=== PATIENT | female | born 1980 ===

== ENCOUNTER 2017-07-06 12:08 | Inpatient (IN) | payer BC, OTHER ==
[2017-07-07] MEDS ORDERED: MAG HYDROX/AL HYDROX/SIMETH 30 ML UDCUP PO PRN (20:06)
[2017-07-07] MEDS ORDERED: MAGNESIUM HYDROXIDE 30 ML UDCUP PO PRN (20:06)
[2017-07-07] MEDS ORDERED: NICOTINE POLACRILEX 2 MG GUM B PRN (20:06)
[2017-07-07] MEDS ORDERED: MELATONIN 3 MG TAB PO PRN (20:20)
[2017-07-07] MEDS ORDERED: hydrOXYzine HCL 25 MG TAB PO PRN (20:21)
[2017-07-07] MEDS ORDERED: SUMAtriptan 50 MG TAB PO PRN (20:23)
[2017-07-07] MEDS: PRAZOSIN HCL 1 MG CAP PO SCH (21:44)
[2017-07-07] MEDS: PROPRANOLOL HCL 20 MG TAB PO SCH (21:45)
[2017-07-07] MEDS: LITHIUM CARBONATE 600 MG CAP PO SCH (21:45)
[2017-07-07] MEDS: FAMOTIDINE 20 MG TAB PO SCH (21:45)
[2017-07-07] MEDS: MIRTAZAPINE 15 MG TAB PO SCH (21:45)
[2017-07-07] MEDS: LORazepam 1 MG TAB PO PRN (21:45)
[2017-07-08] MEDS: FAMOTIDINE 20 MG TAB PO SCH ×2 (07:46→20:59)
[2017-07-08] MEDS: CYCLOBENZAPRINE 10 MG TAB PO PRN ×2 (07:46→20:58)
[2017-07-08] MEDS: ESCITALOPRAM OXALATE 10 MG TAB PO SCH (08:45)
[2017-07-08] MEDS: buPROPion 100 MG TAB PO SCH (08:48)
[2017-07-08] MEDS: PROPRANOLOL HCL 20 MG TAB PO SCH ×2 (08:48→20:59)
[2017-07-08] MEDS: LITHIUM CARBONATE 600 MG CAP PO SCH ×2 (10:07→21:09)
[2017-07-08] MEDS: MULTIVITAMINS 1 EACH TAB PO SCH (10:07)
[2017-07-08] MEDS ORDERED: FLU VACC QS 2017-18 (3YR+)/PF 0.5 ML SYR (FLUARIX QUAD) IM ONE (12:17)
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
[2017-07-08] MEDS: LORazepam 1 MG TAB PO PRN ×2 (15:58→20:59)
[2017-07-08] MEDS ORDERED: OXYMETAZOLINE 30 ML NASAL SPRAY EACHNARE PRN (16:24)
[2017-07-08] MEDS ORDERED: PSEUDOEPHEDRINE HCL 30 MG TAB PO PRN (16:24)
[2017-07-08] MEDS ORDERED: ALBUTEROL HFA ANES ONLY 200 PUFFS/8.5 GM MDI IH PRN (17:05)
[2017-07-08] MEDS ORDERED: ALBUTEROL 200 PUFFS/18 GM MDI IH PRN (17:09)
--- NOTE | 2017-07-08 19:08 | GCON ---
[f rep st] CONSULTATION INTERNAL MEDICINE CONSULTATION DATE OF CONSULTATION: 07/08/2017 REASON FOR CONSULTATION: Medical opinion regarding stability for inpatient psychiatric hospitalizati on. HISTORY OF PRESENT ILLNESS: The patient is a 36-year-old female with a longstanding history of major depressive disorder and suicidal ideation. She was recently hospitalized at [facility] for suicidal ideation, and has failed to improve so was referred to [facility] for ECT. From a medical standpoint, she has multiple complaints including a recent sinus congestion and a little bit of a sore throat. She has COPD due to being born as a preemie, an d does intermittently use inhalers, which she thinks she should start on Advair given this recent vir al upper respiratory tract infection. She has a pinched nerve in her neck that bothers her intermitt ently, typically well controlled on Flexeril and tramadol. She has GERD, which is well controlled on twice daily H2 bernard. PAST MEDICAL HISTORY: 1. Major depressive disorder with psychotic features. 2. Migraine headaches. 3. Celiac disease. 4. GERD. 5. COPD due to being born prematurely. MEDICATIONS: Please see computer record for full detailed list. ALLERGIES: Sulfa. SOCIAL HISTORY: Occasional alcohol. She smokes marijuana daily. She lives with her in [place]. REVIEW OF SYSTEMS: Complete review of systems obtained. Review of systems negative regarding consti tutional, HEENT, GI, pulmonary, cardiovascular, , hematology, skin, muscular, endocrine, psych, exc ept for positives and negatives as in HPI. FAMILY HISTORY: Reviewed and noncontributory to the presenting complaint. PHYSICAL EXAMINATION: GENERAL: Well-developed, well-nourished female, in no acute distress. VITAL SIGNS: Temperature 36.4, pulse 77, blood pressure 109/53, saturating 94% on room air. EYES: Normal conjunctivae. Pupils equal, round, react to light. ENT: Normal ears and nose. Hearing intact. N ormal teeth. Oropharynx moist. NECK: Trachea midline. No thyromegaly. CHEST: Normal respiratory effort. LUNGS: Clear to auscultation bilaterally. CARDIOVASCULAR: Regular rhythm. No murmur. N o lower extremity edema. ABDOMEN: Soft, nontender. No hepatosplenomegaly. SKIN: Warm, dry, intac t without rash. MUSCULOSKELETAL: No cyanosis or clubbing. Strength 5/5 upper and lower extremities . NEUROLOGIC: Cranial nerves intact. Normal sensation to light touch. PSYCH: Alert and oriented x3. Normal affect. Normal judgment. Normal memory. ASSESSMENT/PLAN: 1. Major depressive disorder. ECT per Psychiatry. 2. Migraine headaches. Continue propranolol prophylaxis. She does not have an active headache at t his time. 3. Chronic obstructive pulmonary disease. She currently has a viral upper respiratory tract infecti on, is concerned about this turning into an exacerbation. She requests initiating prophylactic Advai r, as well as having an albuterol inhaler available to her if needed. 4. Celiac disease. Continue gluten free diet. 5. Gastroesophageal reflux disease. She is to continue twice daily H2 bernard. 6. Shoulder pain. We will continue her usual Flexeril and tramadol, which usually gives her good co ntrol. 7. Obesity. BMI is 38. Weight loss should be advised. Thank you very much for this consultation. Please re-contact Internal Medicine if any further needs arise during this hospitalization. /[id number]/MODL
[2017-07-08] MEDS: traMADol 50 MG TAB PO PRN (20:58)
[2017-07-08] MEDS: MIRTAZAPINE 15 MG TAB PO SCH (20:58)
[2017-07-08] MEDS: PRAZOSIN HCL 1 MG CAP PO SCH (20:58)
[2017-07-08] MEDS: guaiFENesin 600 MG TAB.ER PO SCH (20:59)
[2017-07-08] MEDS: FLUTICASONE/SALMETER 250/50MCG DISKUS IH SCH (21:08)
[2017-07-09] MEDS: FAMOTIDINE 20 MG TAB PO SCH ×2 (08:05→20:40)
[2017-07-09] MEDS: FLUTICASONE/SALMETER 250/50MCG DISKUS IH SCH ×2 (08:34→20:45)
[2017-07-09] MEDS: ESCITALOPRAM OXALATE 10 MG TAB PO SCH (08:34)
[2017-07-09] MEDS: MULTIVITAMINS 1 EACH TAB PO SCH (08:34)
[2017-07-09] MEDS: guaiFENesin 600 MG TAB.ER PO SCH ×2 (08:34→20:40)
[2017-07-09] MEDS: LITHIUM CARBONATE 600 MG CAP PO SCH ×2 (08:34→18:03)
[2017-07-09] MEDS: buPROPion 100 MG TAB PO SCH (08:34)
[2017-07-09] MEDS: PROPRANOLOL HCL 20 MG TAB PO SCH ×2 (08:46→20:40)
[2017-07-09] MEDS: LORazepam 1 MG TAB PO PRN ×2 (09:36→18:03)
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
[2017-07-09] MEDS: traMADol 50 MG TAB PO PRN (20:39)
[2017-07-09] MEDS: PRAZOSIN HCL 1 MG CAP PO SCH (20:40)
[2017-07-09] MEDS: CYCLOBENZAPRINE 10 MG TAB PO PRN (20:40)
[2017-07-09] MEDS: traZODone 100 MG TAB PO PRN (20:40)
[2017-07-09] MEDS: MIRTAZAPINE 15 MG TAB PO SCH (20:40)
[2017-07-09] MEDS ORDERED: ONDANSETRON DISINTEGRATING 4 MG TAB PO ONE (21:24)
[2017-07-09] MEDS ORDERED: NS 1,000 ML IV ONE (21:24)
[2017-07-09] MEDS ORDERED: CITRIC ACID/SODIUM CITRATE 30 ML UDCUP PO ONE (21:24)
--- NOTE | 2017-07-10 07:23 | CPEKG ---
Heart Rate: 68 RR Interval: 882 P-R Interval: 152 QRSD Interval: 92 QT Interval: 428 QTC Interval: 456 P [place]: 46 QRS [place]: 52 T Wave [place]: 17 EKG Severity - NORMAL ECG - EKG Impression: SINUS RHYTHM Electronically Signed By: Moses Baum 10-Jul-2017 08:40:20
--- NOTE | 2017-07-10 07:23 | CPEKG ---
Heart Rate: 68 RR Interval: 882 P-R Interval: 152 QRSD Interval: 92 QT Interval: 428 QTC Interval: 456 P [place]: 46 QRS [place]: 52 T Wave [place]: 17 EKG Severity - NORMAL ECG - EKG Impression: SINUS RHYTHM Electronically Signed By: Moses Baum 10-Jul-2017 08:40:20
[2017-07-10] MEDS: ESCITALOPRAM OXALATE 10 MG TAB PO SCH (09:20)
[2017-07-10] MEDS: FAMOTIDINE 20 MG TAB PO SCH ×2 (09:21→20:31)
[2017-07-10] MEDS: guaiFENesin 600 MG TAB.ER PO SCH ×2 (09:21→20:30)
[2017-07-10] MEDS: PROPRANOLOL HCL 20 MG TAB PO SCH ×2 (09:22→20:30)
[2017-07-10] MEDS: LITHIUM CARBONATE 600 MG CAP PO SCH ×2 (09:22→20:30)
[2017-07-10] MEDS: FLUTICASONE/SALMETER 250/50MCG DISKUS IH SCH ×2 (09:23→20:36)
[2017-07-10] MEDS: buPROPion 100 MG TAB PO SCH (10:37)
[2017-07-10] MEDS: MULTIVITAMINS 1 EACH TAB PO SCH (10:37)
[2017-07-10] MEDS ORDERED: NS 1,000 ML IV ONE (12:00)
[2017-07-10] MEDS ORDERED: LIDOCAINE 2% 5 ML SDV ID ONE (12:00)
[2017-07-10] MEDS ORDERED: ONDANSETRON DISINTEGRATING 4 MG TAB PO ONE (12:00)
[2017-07-10] MEDS ORDERED: CITRIC ACID/SODIUM CITRATE 30 ML UDCUP PO ONE (12:00)
[2017-07-10] MEDS ORDERED: KETOROLAC 30 MG/1 ML SDV ONE (12:32)
[2017-07-10] MEDS ORDERED: GLYCOPYRROLATE 0.2 MG/1 ML VIAL ONE (12:32)
[2017-07-10] MEDS ORDERED: ETOMIDATE 20 MG/10 ML VIAL ONE (12:32)
[2017-07-10] MEDS ORDERED: ONDANSETRON 4 MG/2 ML VIAL ONE (12:32)
[2017-07-10] MEDS ORDERED: MIDAZOLAM 2 MG/2 ML VIAL ONE (12:32)
[2017-07-10] MEDS ORDERED: SUCCINYLCHOLINE CHLORIDE 200 MG/10 ML VIAL ONE (12:33)
[2017-07-10] MEDS ORDERED: ROCURONIUM 50 MG/5 ML VIAL ONE (12:33)
[2017-07-10] MEDS ORDERED: ONDANSETRON DISINTEGRATING 4 MG TAB ONE ×2 (13:50→15:31)
[2017-07-10] MEDS ORDERED: CITRIC ACID/SODIUM CITRATE 30 ML UDCUP ONE (13:51)
[2017-07-10] MEDS ORDERED: HYDROmorphONE/DILAUDID 2 MG/ML INJ ONE (14:23)
[2017-07-10] MEDS ORDERED: HYDROCODONE/APAP 5/325 TAB ONE (15:18)
--- NOTE | 2017-07-10 17:09 | SOAPPROG ---
SOAP Progress Note Assessment/Plan: Assessment: Plan: 07/10/17 17:09 TRD: Underwent first acute course ECT today. Will continue current medications and acute course ECT. Subjective: Pt seen, discussed with staff, chart reviewed. Records from [facility] reviewed and case discussed with patient's attending physician there, Dr. Paz. Dr. Rivera's note reviewed as well. She is a 36 y/o CF with hx of TRD, cannabis use and possible Cluster B personality characteristics. Full ECT consultation is performed and dictation is pending. I reviewed with her the risks, benefits and alternatives of ECT and she was given the opportunity to ask questions. She reports being motivated for ECT treatment and is hopeful it will be helpful. She has been cooperative on the unit and participating actively in all therapies. She continues to endorse SI, but states she is safe on the unit at this time. Pt underwent RUL UBP ECT this afternoon without complication. She had an excellent event with good organization, good amplitude and morphology and excellent suppression. She reported 3/10 h/a before and after treatment. I discussed the case and treatment with pt's mother after treatment. Objective: Vital Signs Temp Pulse Resp BP Pulse Ox 36.6 C 68 14 120/58 L 91 L 07/10/17 16:05 07/10/17 16:05 07/10/17 16:05 07/10/17 16:05 07/10/17 16:05 MSE: Calm, coop. Affect is dysphoric, blunted, stable, congruent and approp. Mood is "depressed." TP linear. TC reveals no psychosis. SI persists. - Time Spent With Patient Time Spent With Patient: 55" ICD10 Worksheet Patient Problems: Problems Problem Status Onset Cannabis use disorder, severe, dependence Acute Major depressive disorder, recurrent severe without psychotic features Acute
[2017-07-10] MEDS: HYDROCODONE/APAP 5/325 TAB PO PRN ×2 (17:47→22:02)
[2017-07-10] MEDS: PRAZOSIN HCL 1 MG CAP PO SCH (20:30)
[2017-07-10] MEDS: MIRTAZAPINE 15 MG TAB PO SCH (20:30)
[2017-07-10] MEDS: ACETAMINOPHEN 325 MG TAB PO PRN (20:30)
[2017-07-11] MEDS: CYCLOBENZAPRINE 10 MG TAB PO PRN (02:21)
[2017-07-11] MEDS: HYDROCODONE/APAP 5/325 TAB PO PRN ×2 (02:21→09:55)
[2017-07-11] MEDS: ONDANSETRON DISINTEGRATING 4 MG TAB PO PRN (02:21)
[2017-07-11] MEDS: buPROPion 100 MG TAB PO SCH (08:28)
[2017-07-11] MEDS: ACETAMINOPHEN 325 MG TAB PO PRN (08:28)
[2017-07-11] MEDS: ESCITALOPRAM OXALATE 10 MG TAB PO SCH (08:29)
[2017-07-11] MEDS: FAMOTIDINE 20 MG TAB PO SCH ×2 (08:29→17:42)
[2017-07-11] MEDS: PROPRANOLOL HCL 20 MG TAB PO SCH ×2 (08:29→17:37)
[2017-07-11] MEDS: guaiFENesin 600 MG TAB.ER PO SCH ×2 (08:29→17:48)
[2017-07-11] MEDS: LITHIUM CARBONATE 600 MG CAP PO SCH ×2 (08:29→17:43)
[2017-07-11] MEDS: MULTIVITAMINS 1 EACH TAB PO SCH (08:29)
[2017-07-11] MEDS: FLUTICASONE/SALMETER 250/50MCG DISKUS IH SCH ×2 (08:30→17:43)
--- NOTE | 2017-07-11 13:44 | SOAPPROG ---
SOAP Progress Note Assessment/Plan: Assessment: Plan: 07/10/17 17:09 TRD: Underwent first acute course ECT today. Will continue current medications and acute course ECT. 07/11/17 13:44 TRD: Tolerating ECT well. CCM. Subjective: Pt seen, discussed with staff. C/o continued h/a relieved by Alexander. She reports tolerating the treatment well otherwise. Upbeat and hopeful that ECT will help her. She is compliant with all therapies and medications. SI persists, but improving. Objective: Vital Signs Temp Pulse Resp BP Pulse Ox 36.5 C 63 16 105/57 L 94 07/11/17 06:00 07/11/17 06:00 07/11/17 06:00 07/11/17 06:00 07/11/17 06:00 MSE: Calm, coop. Affect is dysphoric, blunted, stable, approp. Mood is "better." TP linear. TC reveals no psychosis. SI persists. - Time Spent With Patient Time Spent With Patient: 25" ICD10 Worksheet Patient Problems: Problems Problem Status Onset Cannabis use disorder, severe, dependence Acute Major depressive disorder, recurrent severe without psychotic features Acute
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
[2017-07-11] MEDS: PRAZOSIN HCL 1 MG CAP PO SCH (17:41)
[2017-07-11] MEDS: traMADol 50 MG TAB PO PRN (17:42)
[2017-07-11] MEDS: MIRTAZAPINE 15 MG TAB PO SCH (20:46)
[2017-07-12] MEDS ORDERED: CITRIC ACID/SODIUM CITRATE 30 ML UDCUP PO ONE (04:00)
[2017-07-12] MEDS ORDERED: LIDOCAINE 2% 5 ML SDV ID ONE (04:00)
[2017-07-12] MEDS ORDERED: ONDANSETRON DISINTEGRATING 4 MG TAB PO ONE (04:00)
[2017-07-12] MEDS ORDERED: NS 1,000 ML IV ONE (04:00)
[2017-07-12] MEDS ORDERED: MIDAZOLAM 2 MG/2 ML VIAL ONE (06:20)
[2017-07-12] MEDS ORDERED: ROCURONIUM 50 MG/5 ML VIAL ONE (06:21)
[2017-07-12] MEDS ORDERED: SUCCINYLCHOLINE CHLORIDE 200 MG/10 ML VIAL ONE (06:21)
[2017-07-12] MEDS ORDERED: GLYCOPYRROLATE 0.2 MG/1 ML VIAL ONE (06:21)
[2017-07-12] MEDS ORDERED: ONDANSETRON 4 MG/2 ML VIAL ONE (06:21)
[2017-07-12] MEDS ORDERED: KETOROLAC 30 MG/1 ML SDV ONE (06:21)
[2017-07-12] MEDS ORDERED: ETOMIDATE 20 MG/10 ML VIAL ONE (06:21)
[2017-07-12] MEDS ORDERED: HYDROmorphONE/DILAUDID 2 MG/ML INJ ONE ×2 (06:22→08:31)
[2017-07-12] MEDS ORDERED: PROPOFOL 200 MG/20 ML VIAL ONE (06:22)
[2017-07-12] MEDS ORDERED: CITRIC ACID/SODIUM CITRATE 30 ML UDCUP ONE (08:22)
[2017-07-12] MEDS ORDERED: ONDANSETRON DISINTEGRATING 4 MG TAB ONE (08:22)
[2017-07-12] MEDS ORDERED: HYDROCODONE/APAP 5/325 TAB ONE (09:33)
[2017-07-12] MEDS: FLUTICASONE/SALMETER 250/50MCG DISKUS IH SCH ×2 (10:07→21:23)
[2017-07-12] MEDS: FAMOTIDINE 20 MG TAB PO SCH ×2 (10:07→20:57)
[2017-07-12] MEDS: LITHIUM CARBONATE 600 MG CAP PO SCH ×2 (10:07→20:57)
[2017-07-12] MEDS: PROPRANOLOL HCL 20 MG TAB PO SCH ×2 (10:08→20:57)
[2017-07-12] MEDS: ESCITALOPRAM OXALATE 10 MG TAB PO SCH (10:08)
[2017-07-12] MEDS: guaiFENesin 600 MG TAB.ER PO SCH ×2 (10:08→20:57)
[2017-07-12] MEDS: MULTIVITAMINS 1 EACH TAB PO SCH (10:08)
[2017-07-12] MEDS: buPROPion 100 MG TAB PO SCH (10:08)
[2017-07-12] MEDS: HYDROCODONE/APAP 5/325 TAB PO PRN ×3 (11:14→19:17)
[2017-07-12] MEDS: ONDANSETRON DISINTEGRATING 4 MG TAB PO PRN ×2 (11:15→18:46)
--- NOTE | 2017-07-12 17:21 | SOAPPROG ---
SOAP Progress Note Assessment/Plan: Assessment: Plan: 07/10/17 17:09 TRD: Underwent first acute course ECT today. Will continue current medications and acute course ECT. 07/11/17 13:44 TRD: Tolerating ECT well. CCM. 07/12/17 17:20 TRD: Tolerating ECT well. Minimal early response. CCM. Subjective: Pt seen, discussed with staff. Reports feeling "tired but a little better." Underwent RUL UBP ECT this morning without complication. Continues to participate actively in all therapies. Objective: Vital Signs Temp Pulse Resp BP Pulse Ox 36.5 C 73 16 121/60 H 90 L 07/12/17 11:20 07/12/17 12:30 07/12/17 12:30 07/12/17 12:30 07/12/17 12:30 MSE: Moderate psychomotor retardation. Speech is low in tone, o/w nl. Affect is blunted, stable, approp. Mood is "OK...a little better." TP linear, goal- directed. TC reveals no psychosis. SI "better." - Time Spent With Patient Time Spent With Patient: 35" ICD10 Worksheet Patient Problems: Problems Problem Status Onset Cannabis use disorder, severe, dependence Acute Major depressive disorder, recurrent severe without psychotic features Acute
[2017-07-12] MEDS: PRAZOSIN HCL 1 MG CAP PO SCH (20:56)
[2017-07-12] MEDS: traMADol 50 MG TAB PO PRN (20:57)
[2017-07-12] MEDS: CYCLOBENZAPRINE 10 MG TAB PO PRN (20:57)
[2017-07-12] MEDS: LORazepam 1 MG TAB PO PRN (20:57)
[2017-07-12] MEDS: MIRTAZAPINE 15 MG TAB PO SCH (20:57)
[2017-07-13] MEDS: PROPRANOLOL HCL 20 MG TAB PO SCH ×2 (08:26→21:17)
[2017-07-13] MEDS: MULTIVITAMINS 1 EACH TAB PO SCH (08:27)
[2017-07-13] MEDS: guaiFENesin 600 MG TAB.ER PO SCH ×2 (08:27→21:16)
[2017-07-13] MEDS: ESCITALOPRAM OXALATE 10 MG TAB PO SCH (08:27)
[2017-07-13] MEDS: buPROPion 100 MG TAB PO SCH (08:28)
[2017-07-13] MEDS: FAMOTIDINE 20 MG TAB PO SCH ×2 (08:28→21:18)
[2017-07-13] MEDS: LITHIUM CARBONATE 600 MG CAP PO SCH ×2 (08:28→17:16)
[2017-07-13] MEDS: FLUTICASONE/SALMETER 250/50MCG DISKUS IH SCH ×2 (08:48→21:36)
[2017-07-13] MEDS: buPROPion XL 150 MG TAB PO SCH (12:47)
[2017-07-13] MEDS: LORazepam 1 MG TAB PO PRN (17:16)
--- NOTE | 2017-07-13 19:54 | SOAPPROG ---
SOAP Progress Note Assessment/Plan: Assessment: Plan: 07/10/17 17:09 TRD: Underwent first acute course ECT today. Will continue current medications and acute course ECT. 07/11/17 13:44 TRD: Tolerating ECT well. CCM. 07/12/17 17:20 TRD: Tolerating ECT well. Minimal early response. CCM. 07/13/17 19:54 TRD: Gradual improvement. CCM. Subjective: Pt seen, discussed with staff. Reports feeling "OK." Mood has improved slightly and she reports feeling more hopeful. She states she is encouraged by family support and is looking forward to going home. remains hopeful about potential benefit from ECT. Objective: Vital Signs Temp Pulse Resp BP Pulse Ox 36.7 C 63 18 102/51 L 89 L 07/13/17 06:00 07/13/17 06:00 07/13/17 06:00 07/13/17 06:00 07/13/17 06:00 MSE: Calm, coop. Slightly retarded. Affect is blunted, stable, approp. Mood is "OK." TP linear. TC reveals no psychosis. - Time Spent With Patient Time Spent With Patient: 25" ICD10 Worksheet Patient Problems: Problems Problem Status Onset Cannabis use disorder, severe, dependence Acute Major depressive disorder, recurrent severe without psychotic features Acute
[2017-07-13] MEDS: PRAZOSIN HCL 1 MG CAP PO SCH (21:16)
[2017-07-13] MEDS: CYCLOBENZAPRINE 10 MG TAB PO PRN (21:17)
[2017-07-13] MEDS: MIRTAZAPINE 15 MG TAB PO SCH (21:17)
[2017-07-13] MEDS: traZODone 100 MG TAB PO PRN (21:17)
[2017-07-13] MEDS: traMADol 50 MG TAB PO PRN (21:17)
[2017-07-14] MEDS ORDERED: ONDANSETRON DISINTEGRATING 4 MG TAB PO ONE (05:00)
[2017-07-14] MEDS ORDERED: CITRIC ACID/SODIUM CITRATE 30 ML UDCUP PO ONE (05:00)
[2017-07-14] MEDS ORDERED: LIDOCAINE 2% 5 ML SDV ID ONE (05:00)
[2017-07-14] MEDS ORDERED: NS 1,000 ML IV ONE (05:00)
[2017-07-14] MEDS ORDERED: ONDANSETRON 4 MG/2 ML VIAL ONE (05:29)
[2017-07-14] MEDS ORDERED: MIDAZOLAM 2 MG/2 ML VIAL ONE (05:29)
[2017-07-14] MEDS ORDERED: KETOROLAC 30 MG/1 ML SDV ONE (05:29)
[2017-07-14] MEDS ORDERED: ETOMIDATE 20 MG/10 ML VIAL ONE (05:29)
[2017-07-14] MEDS ORDERED: GLYCOPYRROLATE 0.2 MG/1 ML VIAL ONE (05:29)
[2017-07-14] MEDS ORDERED: PROPOFOL 200 MG/20 ML VIAL ONE (05:29)
[2017-07-14] MEDS ORDERED: SUCCINYLCHOLINE CHLORIDE 200 MG/10 ML VIAL ONE (05:30)
[2017-07-14] MEDS ORDERED: ROCURONIUM 50 MG/5 ML VIAL ONE (05:30)
[2017-07-14] MEDS ORDERED: ONDANSETRON DISINTEGRATING 4 MG TAB ONE (06:49)
[2017-07-14] MEDS ORDERED: CITRIC ACID/SODIUM CITRATE 30 ML UDCUP ONE (06:49)
[2017-07-14] MEDS ORDERED: PROMETHAZINE HCL 25 MG TAB ONE (06:53)
[2017-07-14] MEDS ORDERED: HYDROmorphONE/DILAUDID 2 MG/ML INJ ONE ×2 (06:54)
[2017-07-14] MEDS ORDERED: HYDROCODONE/APAP 5/325 TAB ONE (07:52)
[2017-07-14 08:05] VITALS: TEMP 97.9
[2017-07-14] MEDS: guaiFENesin 600 MG TAB.ER PO SCH (09:28)
[2017-07-14] MEDS: FLUTICASONE/SALMETER 250/50MCG DISKUS IH SCH (09:28)
[2017-07-14] MEDS: ESCITALOPRAM OXALATE 10 MG TAB PO SCH (09:28)
[2017-07-14] MEDS: FAMOTIDINE 20 MG TAB PO SCH (09:28)
[2017-07-14] MEDS: MULTIVITAMINS 1 EACH TAB PO SCH (09:28)
[2017-07-14] MEDS: LITHIUM CARBONATE 600 MG CAP PO SCH (09:28)
[2017-07-14] MEDS: buPROPion XL 150 MG TAB PO SCH (09:28)
[2017-07-14] MEDS: PROPRANOLOL HCL 20 MG TAB PO SCH (09:29)
[2017-07-14 10:54] VITALS: BP 122/57; PULSE 90; RESP 16; O2SAT 95
[2017-07-14] MEDS: ONDANSETRON DISINTEGRATING 4 MG TAB PO PRN (11:48)
== END 2017-07-14 12:00 | disposition home or self-care (01) | DRG 885 ==
LOC: BBEH 07-07 17:25
PROVIDERS: ADMIT Psychiatry & Neurology Psychiatry; ATTEND Psychiatry & Neurology Psychiatry
PROC: GZB4ZZZ Other Electroconvulsive Therapy (ICD-10-PCS; principal; 2017-07-10)
DX: F33.2 Major depressive disorder, recurrent severe without psychotic features (principal); F12.90 Cannabis use, unspecified, uncomplicated; E66.9 Obesity, unspecified; Z56.0 Unemployment, unspecified; G43.909 Migraine, unspecified, not intractable, without status migrainosus; K21.9 Gastro-esophageal reflux disease without esophagitis; J44.9 Chronic obstructive pulmonary disease, unspecified
CPT/HCPCS: G0008; J0330; J1170; J1885; J2250; J2405; J2704